=== PATIENT | male | born 1970 | race Caucasian/White ===

== ENCOUNTER 2019-10-11 10:10 | Emergency (ER) | payer OTHER, SELFPAY ==
[2019-10-11 10:23] VITALS: BP 149/92; PULSE 110; RESP 18; TEMP 36.9; O2SAT 98
--- NOTE | 2019-10-11 11:39 | ED.URI ---
HPI - URI/Sore Throat General Chief Complaint: Upper Respiratory Infection Stated Complaint: congestion/cough/throat Source: patient and RN notes reviewed Mode of arrival: ambulatory Limitations: no limitations History of Present Illness HPI Narrative: The patient, non-smoker/ occ drinker [place] [employer], presents with cough. Patient states he has had quick onset 2-day history of chills, has scratchy sore throat, nasal congestion and cough. No fever measured, wheeze, precordial chest pain, calf pain/edema. Spouse reportedly had strep. Related Data Home Medications Medication Instructions Recorded Confirmed lisinopril 20 mg DAILY 10/11/19 10/11/19 Allergies Allergy/AdvReac Type Severity Reaction Status Date / Time No Known Allergies Allergy Verified 06/21/16 21:27 Review of Systems Review of Systems: Narrative: General/Constitutional: No weight loss, POSSIBLE fever Eyes: N0: Redness,discharge Ears/Nose/Throat: No: Epistaxis,ear discharge Respiratory: Denies: Hemoptysis Gastrointestinal: No Vomiting, Bleeding-rectal Skin: No Lumps, eruption Neurologic: No Focal Weakness,Sz Hematologic: Denies: Petechiae/Purpura Psychiatric: No: Suicida ideationl All Other Systems: Reviewed and Negative PMFSH Social History Social History Gender identity (if verbalized by the patient): Male Comments At time of signature, agree with nursing past medical, surgical, social and family history. There is no relevant family history pertinent to the presenting complaint Exam Narrative: Exam Narrative: General Appearance: Well appearing, Well nourished EYE: PERRLA, Conjunctiva clear Ears: Auditory canal normal, TM normal Nose: Rhinorrhea, Mucousal erythema Mouth/Throat: MM moist, Uvula midline, Pharyngeal erythema Neck: Supple, No adenopathy Respiratory: No respiratory distress, Breath sounds equal, Clear to auscultation Cardiovascular: RRR, No JVD Musculoskeletal: Non tender, Normal strength Skin: Warm, Dry Neurological: A&O x3, CN II-XII intact Psychiatric: Normal mood, Normal affect Course Vital Signs Vital signs: Vital Signs Temperature 98.4 F 10/11/19 10:23 Pulse Rate 110 H 10/11/19 10:23 Respiratory Rate 18 10/11/19 10:23 Blood Pressure 149/92 H 10/11/19 10:23 Pulse Oximetry 98 10/11/19 10:23 Temperature 98.4 F 10/11/19 10:23 Pulse Rate 110 H 10/11/19 10:23 Respiratory Rate 18 10/11/19 10:23 Blood Pressure 149/92 H 10/11/19 10:23 Pulse Oximetry 98 10/11/19 10:23 MDM - URI/Sore Throat Lab Data Labs: Influenza A Screen Positive Reference Range: Negative Influenza B Screen Negative Reference Range: Negative Strep Screen Positive Group A Strep *(Reference Range: Negative)* Discharge Plan Discharge Clinical Impression: Influenza A, Strep throat Patient Disposition: Home, Self-Care Condition: Stable Instructions: Antibiotic Form, Influenza (ED) Prescriptions: New azithromycin 250 mg tablet See Rx Instructions .ROUTE .COMPLEX Qty: 6 RF: 0 codeine-guaifenesin 10-100 mg/5 mL liquid 7.5 ml PO Q6H PRN (Reason: cough) Qty: 118 RF: 0 benzonatate [Tessalon Perles] 100 mg capsule 100 mg PO TID Qty: 20 RF: 1 oseltamivir 75 mg capsule 75 mg PO Q12H 5 Days Qty: 10 RF: 0 No Action lisinopril 20 mg tablet 20 mg DAILY RF: 0 Interventions: Discharge Disposition Last Done: 10/11/19 10:53 Follow-up/Referrals: UNKNOWN,DOCTOR [Primary Care Provider] - Stand Alone Forms: Work/School Release IP Discharge Date/Time: 10/11/19 10:55
== END 2019-10-11 10:55 | disposition home or self-care (01) ==
PROVIDERS: Emergency Provider Emergency Medicine
DX: J10.1 Influenza due to other identified influenza virus with other respiratory manifestations (principal); I10 Essential (primary) hypertension
CPT/HCPCS: 87804; 87880; 99203; G0463

== ENCOUNTER 2025-08-07 18:02 | Emergency (ER) | payer OTHER, SELFPAY ==
--- NOTE | ~2025-08-07 | XR_ITS ---
EXAMINATION: XR chest 2V DATE: 08/07/2025 18:19 INDICATION: Chest pain TECHNIQUE: Frontal and lateral views of the chest were obtained. COMPARISON: Chest x-ray dated 07/13/2016 FINDINGS: Heart size is normal. Lungs are clear of acute processes. IMPRESSION: 1. No acute findings. Reviewed, dictated and finalized at location T. [facility] IMPRESSION: 1. No acute findings.
--- NOTE | 2025-08-07 18:08 | ECG_ITS ---
Test Date: 2025-08-07 18:14:48 Measurements Intervals Mylo Rate: 84 P: 98 HI: 147 QRS: 20 QRSD: 110 T: 40 QT: 400 QTc: 474 Interpretive Statements SINUS RHYTHM BASELINE ARTIFACT- I, II, III, AVR, AVL, AVF, V1-V6 NORMAL ECG No previous ECG available for comparison Electronically Signed On 08-07-2025 19:58:51 MACHINE OPERATOR HELPER by Carter Krueger D.O.
[2025-08-07 18:17] VITALS: BP 154/73; PULSE 87; RESP 18; TEMP 36.4; O2SAT 100
--- OUTSIDE RECORDS SUMMARY | 2025-08-07 20:14 | XMS_ITS | Clinical Summary ---
Author Organization [employer] [facility] Address [address] [facility] [place] [address] Care Team Providers Care Competitive Intelligence Manager Name Role Phone Unavailable Primary Care Provider Unavailabl e Social History Tobacco Use Types Packs/Day Years Used Date Smoking Tobacco: Never Assessed Sex and Gender Information Value Date Recorded Sex Assigned at Not on file Legal Sex Male 5:15 PM EST Gender Identity Not on file Sexual Orientation Not on file Plan of Treatment Not on file Medical Devices Not on file Insurance [employer]
--- OUTSIDE RECORDS SUMMARY | 2025-08-07 21:33 | XMS_ITS | Encounter Summary ---
Author Organization [facility] Address [address] [place] [address] Care Team Providers Care Paper Baler Name Role Phone Rocio Chacon MD Primary Care Provider Unavailab le Ai Jerry Primary Care Provider [phone] Frank Moeller MD Unavailable [phone] Prashant Chu MD Unavailable [phone] Ai Jerry Primary Care Provider [phone] Campbell Krishna MD Primary Care Provider U Lillian Hahn APRN Primary Care Provider + [phone] Encounter Details Date Type Department Care Team (Late st Contact Info) Description 12/28/2019 Hospital Follow-up Call [facility] Tele[facility] Unit B [facility] [place], [place] [id number] Meghann Zhao Social History Tobacco Use Types Packs/Day Years Used Date Smoking Tobacco: Former Cigarettes 1 3 0 12/22/1996 - 12/23/1999 Smokeless Tobacco: Current Chew Alcohol Use Standard Drinks/Week Comments Yes 0 (1 standard drink = 0.6 oz pur e alcohol) rare Social Connection and Isolation Panel Answer Date Recorded Frequency of Communication w ith Friends and Family More than three times a week 12/23/2019 Frequency of Social Gatherin gs with Friends and Family More than three times a week 12/23/2019 Attends Anabaptism Services More than 4 times per year 12/23/2019 Active Member of Clubs or Organizations No 12/23/2019 Attends Club or Organization Meetings Never 12/23/2019 Marital Status 12/23/2019 Overall Financial Resource Strain (CARDIA) Answe r Date Recorded Difficulty of Paying Living Expenses Not hard at all 12/23/2019 [facility] [place] [facility] Occup[facility] ional [facility] - Occupational Stress Questionnaire Answer Date Recorded Feeling of Stress To some extent 12/23/2019 Exercise Vital Sign Answer Date Recorde d Days of Exercise per Week 5 days 2019 Minutes of Exercise per Session 40 min 12/23/2019 Hunger Vital Sign Answer Date Recorded Worried About Running Out of Food in the Last Ye ar Never true 12/23/2019 Ran Out of Food in the Last Year Never true 12/23/2019 PRAPARE - Transportation Answer Date Re corded Lack of Transportation (Medical) No 12/23/2019 Lack of Transportation (Non-Medical) No 12/23/2019 Sex and Gender Information Value Date Recorded Sex Assigned at Male 12/23/2019 3:59 PM CDT Legal Sex Male 1:01 PM CDT Gender Identity Male 12/23/2019 3:59 PM CDT Sexual Orientation Straight 12/23/2019 3: 59 PM CDT COVID-19 Exposure Response Date Recorded In the last month, have you been in contact with someone who was confirmed or suspected to have Coronavirus / COVID-19? No / Unsure 12/23/2019 8:39 PM CDT documented as of this encounter Functional Status * RETIRED Are you deaf or do you have serious difficulty hearing Answer Date of Assessment Author Status No 12/23/2019 11:00 PM CDT Acti ve * RETIRED Are you blind or do you have serious difficulty seeing, even when wearing glasses? Answer Date of Assessment Author Status No 12/23/2019 11:00 PM CDT Acti ve * Do you have serious difficulty walking or climbing stairs? Answer Date of Assessment Author Status No 12/23/2019 11:00 PM CDT Shanelle Puente R N Active * Do you have difficulty dressing or bathing? Answer Date of Assessment Author Status No 12/23/2019 11:00 PM CDT Shanelle Puente R N Active * Because of a physical, mental, or emotional condition, do you have difficulty doing errands alone such as visiting a doctor's office or shopping? Answer Date of Assessment Author Status No 12/23/2019 11:00 PM CDT Shanelle Puente R N Active documented as of this encounter Mental Status * Because of a physical, mental, or emotional condition, do you have serious difficulty concentrating, remembering, or making decisions? Answer Entry Date Author Status No 12/23/2019 11:00 PM CDT Shanelle Puente R N Active documented in this encounter Plan of Treatment Upcoming Encounters Date Type Department Care Team (Late st Contact Info) Description 09/26/2025 9:30 AM HOP STRAINER Office Visit [facility], [address] [place], [place] [address] Frank Moeller MD [facility]. [address] [place], [place] [id number] documented as of this encounter Visit Diagnoses Not on filedocumented in this encounter Additional Health Concerns Infection Onset Date Last Indicated Resolved Time COVID-19 Rule Out 02/01/2020 02/01/2020 02/01/2020 10:08 PM CDT documented as of this encounter Care Teams Paper Baler Relationship Specialty Start Date End Date Rocio Chacon MD PCP - General INTERNAL MEDICINE 01/30/16 01/31/20 Ai Jerry APNP [address] [address] PCP - General Nurse Practitioner Family 02/01/2005/03 Ai Jerry APNP [address] [address] PCP - General Nurse Practitioner Family 05/31/2010/02 aCmpbell Krishna MD [facility]. [address] [place] [address] PCP - General INTERNAL MEDICINE 10/29/21 12/04/22 Lillian Dexter APRN [address] [facility] [address] [place] [address] PCP - General NURSE PRACTITIONER 12/05/22 08/06/25 Frank Moeller MD [facility]. [facility] [address] [place] [address] Consulting Physician CARDIOVASCULAR DISEASE 06/13/20 Prashant Chu MD [facility]. [facility] [address] [place] [address] Consulting Physician CLINICAL CARDIAC ELECTROPHYSIOLOGY 06/13/20 documented as of this encounter
--- OUTSIDE RECORDS SUMMARY | 2025-08-07 21:33 | XMS_ITS | Encounter Summary ---
Author Organization [facility] Address [address] [place] [address] Care Team Providers Care Parachute Crown Sewer Name Role Phone Rocio Chacon MD Primary Care Provider Unavailab le Ai Jerry Primary Care Provider [phone] Frank Moeller MD Unavailable [phone] Prashant Chu MD Unavailable [phone] Ai Jerry Primary Care Provider [phone] Campbell Krishna MD Primary Care Provider U Lillian Hahn APRN Primary Care Provider + [phone] Encounter Details Date Type Department Care Team (Late st Contact Info) Description 02/05/2019 Abstract [facility] [address] [place] [address] , Generic Conversion, Social History Tobacco Use Types Packs/Day Years Used Date Smoking Tobacco: Never Smokeless Tobacco: Current Alcohol Use Standard Drinks/Week Comments Yes 0 (1 standard drink = 0.6 oz pur e alcohol) rare Sex and Gender Information Value Date Recorded Sex Assigned at Male 12/23/2019 3:59 PM CDT Legal Sex Male 1:01 PM CDT Gender Identity Male 12/23/2019 3:59 PM CDT Sexual Orientation Straight 12/23/2019 3: 59 PM CDT documented as of this encounter Plan of Treatment Upcoming Encounters Date Type Department Care Team (Late st Contact Info) Description 09/26/2025 9:30 AM PLASTIC EXTRUDING MACHINE OPERATOR Office Visit [facility] [address], [address] [place] [address] Frank Moeller MD [facility]. [address] [place] [address] documented as of this encounter Visit Diagnoses Not on filedocumented in this encounter Additional Health Concerns Infection Onset Date Last Indicated Resolved Time COVID-19 Rule Out 02/01/2020 02/01/2020 02/01/2020 10:08 PM CDT documented as of this encounter Care Teams Parachute Crown Sewer Relationship Specialty Start Date End Date Rocio Chacon MD PCP - General INTERNAL MEDICINE 01/30/16 01/31/20 Ai Jerry APNP [address] [facility] [address] [place] [address] PCP - General Nurse Practitioner Family 02/01/2005/03 Ai Jerry APNP [address] [facility] [address] [place] [id number] PCP - General Nurse Practitioner Family 05/31/2010/02 Campbell Krishna MD [facility]. [facility] [address] [place] [address] PCP - General INTERNAL MEDICINE 10/29/21 12/04/22 Lillian Dexter APRN [address] [facility] [address] [place] [address] PCP - General NURSE PRACTITIONER 12/05/22 08/06/25 Frank Moeller MD [facility]. [place] [address] [place] [address] Consulting Physician CARDIOVASCULAR DISEASE 06/13/20 Prashant Chu MD [facility]. [address] [address] Consulting Physician CLINICAL CARDIAC ELECTROPHYSIOLOGY 06/13/20 documented as of this encounter
--- OUTSIDE RECORDS SUMMARY | 2025-08-07 21:33 | XMS_ITS | Encounter Summary ---
Author Organization [facility] Address [address] [place] [address] Care Team Providers Care Aging Room Hand Name Role Phone Rocio Chacon MD Primary Care Provider Unavailab le Ai Jerry Primary Care Provider [phone] Frank Moeller MD Unavailable [phone] Prashant Chu MD Unavailable [phone] Ai Jerry Primary Care Provider [phone] Campbell Krishna MD Primary Care Provider U Lillian Hahn APRN Primary Care Provider + [phone] Encounter Details Date Type Department Care Team (Latest Contact Info) Description 02/26/2018 Abstract [facility] , Duyen Up MD Social History Tobacco Use Types Packs/Day Years [...] st Contact Info) Description 09/26/2025 9:30 AM BLACK TOP ROLLER Office Visit [facility], [address] [address] Frank Moeller MD [facility]. [facility] [address] [place] [address] documented as of this encounter Visit Diagnoses Not on filedocumented in this encounter Additional Health Concerns Infection Onset Date Last Indicated Resolved Time COVID-19 Rule Out 02/01/2020 02/01/2020 02/01/2020 10:08 PM CDT documented as of this encounter Care Teams Aging Room Hand Relationship Specialty Start Date End Date Rocio Chacon MD PCP - General INTERNAL MEDICINE 01/30/16 01/31/20 Ai Jerry APNP [address] [address] PCP - General Nurse Practitioner Family 02/01/2005/03 Ai Jeryr APNP [address] [address] PCP - General Nurse Practitioner Family 05/31/2010/02 Campbell Krishna MD [facility] [address] [place] [address] PCP - General INTERNAL MEDICINE 10/29/21 12/04/22 Lillian Dexter APRN [address] [facility] [address] [place] [address] PCP - General NURSE PRACTITIONER 12/05/22 08/06/25 Frank Moeller MD [facility]. [facility] [address] [place] [address] Consulting Physician CARDIOVASCULAR DISEASE 06/13/20 Prashant Chu MD [facility] [place] [address] [place] [address] Consulting Physician CLINICAL CARDIAC ELECTROPHYSIOLOGY 06/13/20 documented as of this encounter
--- OUTSIDE RECORDS SUMMARY | 2025-08-07 21:33 | XMS_ITS | Clinical Summary ---
Author Organization [facility] [facility] Address [address] [facility] [place] [address] Care Team Providers Care Electrician Manager Name Role Phone Unavailable Primary Care [...] file Medical Devices Not on file Insurance [employer]
--- OUTSIDE RECORDS SUMMARY | 2025-08-07 21:33 | XMS_ITS | Clinical Summary ---
Author Organization [facility] Address [address] [place] [address] Care Team Providers Care Rubber Insulator Name Role Phone Millie Coffey MD Primary Care Provider Allergies No known active allergies Medications hydroCHLOROthiazid e (HYDRODIURIL) 25 mg tabletIndications: Hypertension, unspecified type Take 1 tablet (25 mg total) by mouth daily 90 tablet 1 01/21/20 24 Active LORazepam (ATIVAN) 1 mg tablet Take 1 tablet (1 mg total) by mouth every 6 (six) hours as needed for anxiety (flying) 4 tablet 04/28/[address] (CYMBALTA) 30 mg capsule Take 1 capsule (30 mg total) by mouth daily 60 capsule 10/27/19 26 026 Active lisinopriL (PRINIVIL,ZESTRIL) 40 mg tabletIndications: Hypertension, essential Take 1 tablet (40 mg total) by mouth daily 90 tablet 07/11/20 25 Active metoprolol XL (TOPROL-XL) 100 mg 24 hr tabletIndications: Hypertension, essential Take 1.5 tablets (150 mg total) by mouth daily 1 /2 tab 135 tablet 07/11/20 25 Active amLODIPine (NORVASC) 10 mg tabletIndications: Hypertension, essential Take 0.5 tablets (5 mg total) by mouth 2 (two) times a day 90 tablet 07/11/20 25 Active apixaban (ELIQUIS) 5 mg tabletIndications: Atrial fibrillation with RVR (HCC) Take 1 tablet (5 mg total) by mouth 2 (two) times a day 90 tablet 2 07/11/20 25 Active tirzepatide, weight loss, (Zepbound) 10 mg/0.5 mL pen injectorIndication s:Body mass index (BMI) of 36.0 to 36.9 Inject 0.5 mL (10 mg total) under the skin every 7 days 2 mL 2 07/11/[address] (CYMBALTA) 60 mg capsuleIndications :Chronic Musculoskeletal Pain Take 1 capsule (60 mg total) by mouth daily 90 capsule 08/03/20 25 026 Active prazosin (MINIPRESS) 1 mg capsule Take 1 capsule (1 mg total) by mouth nightly 90 capsule 1 08/07/20 25 Active lisinopriL (PRINIVIL,ZESTRIL) 40 mg tablet Take by mouth daily 09/10/19 23 025 Discontinued(R eorder) metoprolol XL (TOPROL-XL) 100 mg 24 hr tablet 1 09/01 tab 08/25/20 22 025 Discontinued(R eorder) amLODIPine (NORVASC) 10 mg tablet Take 0.5 tablets (5 mg total) by mouth 2 (two) times a day 07/30/20 22 025 Discontinued(R eorder) apixaban (ELIQUIS) 5 mg tablet Take 1 tablet (5 mg total) by mouth 2 (two) times a day 08/29/20 23 025 Discontinued(R eorder) prazosin (MINIPRESS) 1 mg capsule TAKE 1 CAPSULE(1 MG) BY MOUTH EVERY NIGHT 90 capsule 1 02/03/20 25 025 Discontinued(R eorder) DULoxetine DR (CYMBALTA) 60 mg capsuleIndications :Chronic Musculoskeletal Pain Take 1 capsule (60 mg total) by mouth daily 90 capsule 1 05/10/20 25 025 Discontinued tirzepatide, weight loss, (Zepbound) 10 mg/0.5 mL pen injectorIndication s:Body mass index (BMI) of 36.0 to 36.9 Inject 0.5 mL (10 mg total) under the skin every 7 days 2 mL 05/26/20 25 025 Discontinued(R eorder) Active Problems Problem Noted Date Diagnosed Date PUD (peptic ulcer disease) 10/05/2023 Motion sickness 03/09/2023 Overview (03/09/2023): -has struggled with motion sickness in the past -previously treated with meclizine in the past but states this no longer works -he is also very claustrophobic and is worried about an upcoming road trip -leaving 03/11 on a [address] trip to [place] and he is very worried he is not going to make it there due to motion sickness and a panic attack while being in the car -he will not be driving, his is driving the entire time -is wondering about as needed medication for anxiety if the scopolamine does not work Scopolamine sent to pharmacy. Reviewed application instructions, duration and side effects. Anxiety 11/18/2021 Essential hypertension 01/24/2021 Overview (01/05/2023): -BP at goal today in clinic -requesting refill for HCTZ Refill sent to pharmacy. Chest pain 12/29/2020 Bradycardia 11/21/2020 Atrial fibrillation with RVR 12/23/2019 Insomnia 05/17/2018 SALVATORE on CPAP 12/18/2016 Esophageal dysphagia 07/22/2016 Overview (10/13/2024): Added automatically from request for surgery [id number] Panic attack 07/22/2016 Internal derangement of shoulder, left 6 Elevated AST (SGOT) 01/26/2014 Hyperlipidemia 01/26/2014 Obesity 01/09/2014 Overview (03/09/2023): -needing refill of wegovy 1.7mg weekly -on this dose for 4 weeks -had diarrhea with the first 2 doses -he does not want to increase dose just yet Refilled wegovy 1.7mg for 4 weeks. Follow up with PCP as previously scheduled. Encounters Date Type Department Care Team Description 05/10/2025 8:30 AM CDT Office Visit [facility] Medicine Gastroenterology [address] [facility] Building [address] [place] [phone] Kelin Bernal MD Chest pain, unspecified type (Primary Dx); PUD (peptic ulcer disease) from Last 3 Months Immunizations Immunization Administration Dates Next Due Influenza, Quadrivalent, Maggy l Culture-based MDCK, Antibiotic Free, Intramuscular 06/16/2019 Influenza, Unspecified 06/20/2019 Moderna SARS-CoV-2 Monovalent Vaccination (12+ Y RS) 09/19/2020 Tdap 12/05/2022 Surgical History Surgery Date Site/Laterality Comments ABLATION TONSILLECTOMY AND ADENOIDECTOMY APPENDECTOMY COLONOSCOPY 2021 UPPER GASTROINTESTINAL ENDOSCOPY 2021 Medical History Medical History Date Comments Atrial fibrillation (HCC) Abdominal pain High blood pressure GERD (gastroesophageal reflux disease) 2020 Fatigue 2020 Food intolerance 2020 Fatty liver 2014 Anxiety Back pain Sinusitis 1971 Ear problems 1971 Family History Medical History Relation Name Comments Alcohol abuse Father's Brother Jeferson Whitney Heart disease Maternal Grandfather Syed Loza Geraldo Heart failure Maternal Grandfather Syed Loza Geraldo Snoring Maternal Grandfather Syed Loza Geraldo Cancer Mother Samia Whitney Colon cancer Mother Samia Whitney Kidney disease Mother Samia Whitney Kidney failure Mother Samia Whitney Ovarian cancer Mother Samia Whitney Rheum arthritis Mother Samia Whitney Relation Name Status Comments Father's Brother Jeferson Whitney Alive Maternal Grandfather Syed Chow Mother Samia Whitney Social History Tobacco Use Types Packs/Day Years Used Date Smoking Tobacco: Former Cigarettes Q uit: 1994 Smokeless Tobacco: Former Chew Quit: 2021 Tobacco Cessation:Counseling Given: Not Answered AUDIT-C Answer Date Recorded Q1: How often do you have a drink containing alc ohol? Never 12/09/2023 Average Number of Drinks Not on file 024 Frequency of Binge Drinking Not on file 11/29 PHQ-2 Answer Date Recorded PHQ-2 Total Score (If total score is 3 or more points, staff should administer the PHQ-9) 0 04/28/2025 Personal Safety Answer Date Recorded Have you ever been in or are you currently in a harmful physical or emotional relationship or is someone making you feel afraid or unsafe? Denies 12/09/2023 Sex and Gender Information Value Date Recorded Sex Assigned at Not on file Legal Sex Male 1:44 AM SPECIFICATIONS WRITER Gender Identity Not on file Sexual Orientation Not on file Last Filed Vital Signs Vital Sign Reading Time Taken Comments Blood Pressure 122/76 05/10/2025 8:10 AM CDT Pulse 65 05/10/2025 8:10 AM CDT Temperature 36.4 C (97.6 F) 05/10/2025 8:10 AM CDT Respiratory Rate 16 01/27/2025 8:23 AM CDT Oxygen Saturation 97% 05/10/2025 8:10 AM CDT Inhaled Oxygen Concentration - - Weight 118.6 kg (261 lb 6.4 oz) 05/10/2025 8:10 AM CDT Height 185.4 cm (6' 0.99) 05/10/2025 8:10 AM CD T Body Mass Index 34.5 05/10/2025 8:10 AM CDT Plan of Treatment Health Maintenance Due Date Last Done Comments Regular Well Visit/Exam 18-64 1988 Zoster Vaccine (1 of 2) 2020 Covid-19 Vaccine ( - 2024-2 6 season) 2025 10/23/2020, 09/19/2020 Influenza Vaccine (#1) 2025 9, 06/16/2019 Depression Screening 04/28/2026 04/28/2025, 01/15/2024, 10/09/2022 Prostate Cancer Screening-PSA 04/28/2027, 02/23/2023 Colon Cancer Screening-Colonoscopy 06/17/2027 06/17/2022 DTaP/Tdap/Td Vaccine (2 - Td or Tdap) 12/05/2032 12/05/2022 Hepatitis B Screening Completed 01/15/2024 Hepatitis C Screening Completed 01/15/2024 Pneumococcal vaccine <65 Aged Out No longer eligible based on patient's age to complete this topic Procedures Procedure Name Priority Date/Time Associated Diagnosis Comments PSA SCREEN Routine 04/28/2025 8:29 AM CDT Screening for prostate cancer HEPATITIS C ANTIBODY Routine 01/15/2024 8:26 AM CDT Health care maintenance from Last 3 Months or Most Recently Relevant to Health Maintenance Results * PSA screen (04/28/2025 8:29 AM CDT) PSA-Total 0.51 <=3.90 ng/mL Comment: Interpretive Data AGE SEX REFERENCE INTERVAL 0 minutes-150 years Female None 0 minutes-49 years Male None 50-59 years Male 0-3.90 60-69 years Male 0-5.40 70-79 years Male 0-6.20 80-150 years Male 0-6.20 The Enrique PSA Total assay procedure was used. Results from different manufacturers or methods may not be comparable. Serial testing should be performed using the same method. Current interpretive data last revised 22. Blood 04/28/2025 8:29 AM CDT 04/28/2025 8:43 AM CDT Millie Coffey MD LAB BLOOD ORDERABLES F inal Result Performing Organization Address [facility] Co de [facility] [place] [address] * Hepatitis C antibody Blood (01/15/2024 8:26 AM CDT) Pathologist [facility] Hep C Ab Nonreactive Nonreactive Comment:Antibodies to HCV no t detected. Does NOT exclude the possibility of recent exposure to HCV. Current interpretive data was last revised on 22 Blood 01/15/2024 8:26 AM CDT 01/15/2024 8:34 AM CDT Millie Coffey MD LAB MICROBIOLOGY - GEN ERAL ORDERABLES Final Result Performing Organization Address [facility] Co de Phone Number [facility] [place] [address] from Last 3 Months or Most Recently Relevant to Health Maintenance Insurance [facility] [id number] [facility] [facility] [id number] Advance Directives For more information, please contact: [phone] * Full Code (Latest Code Status on File) Date Activated Date Inactivated Comments 12/09/2023 8:41 AM 12/09/2023 2:59 PM * Full Code Date Activated Date Inactivated Comments 09/01/2023 12:18 PM 09/01/2023 8:33 PM Care Teams Rubber Insulator Relationship Specialty Start Date End Date Millie Coffey MD [address] [place] [address] PCP - General Internal Medicine 10/09/22
--- OUTSIDE RECORDS SUMMARY | 2025-08-07 21:33 | XMS_ITS | Encounter Summary ---
Author Organization [facility] Address [address] [place] [address] Care Team Providers Care Adolescent Counselor Name Role Phone Rocio Chacon MD Primary Care Provider Unavailab le Ai Jerry Primary Care Provider [phone] Frank Moeller MD Unavailable [phone] Prashant Chu MD Unavailable [phone] Ai Jerry Primary Care Provider [phone] Campbell Krishna MD Primary Care Provider U Lillian Hahn APRN Primary Care Provider + [phone] Encounter Details Date Type Department Care Team (Latest Contact Info) Description 02/19/2018 Abstract [facility] , Duyen Up MD [...] st Contact Info) Description 09/26/2025 9:30 AM MRI SPECIAL PROCEDURES TECHNOLOGIST Office Visit [facility], [address] [address] Frank Moeller MD [facility]. [facility] [address] [place] [address] documented as of this encounter Visit Diagnoses Not on filedocumented in this encounter Additional Health Concerns Infection Onset Date Last Indicated Resolved Time COVID-19 Rule Out 02/01/2020 02/01/2020 02/01/2020 10:08 PM CDT documented as of this encounter Care Teams Adolescent Counselor Relationship Specialty Start Date End Date Rocio Chacon MD PCP - General INTERNAL MEDICINE 01/30/16 01/31/20 Ai Jerry APNP [id number] [address] PCP - General Nurse Practitioner Family 02/01/2005/03 Ai Jerry APNP [address] [address] PCP - General Nurse Practitioner Family 05/31/2010/02 Campbell Krishna MD [facility] [address] [place] [address] PCP - General INTERNAL MEDICINE 10/29/21 12/04/22 Lillian Dexter APRN [address] [facility] [address] [place] [address] PCP - General NURSE PRACTITIONER 12/05/22 08/06/25 Frank Moeller MD [facility]. [facility] [address] [place] [address] Consulting Physician CARDIOVASCULAR DISEASE 06/13/20 Prashant Chu MD [id number] [place] [address] Consulting Physician CLINICAL CARDIAC ELECTROPHYSIOLOGY 06/13/20 documented as of this encounter
--- OUTSIDE RECORDS SUMMARY | 2025-08-07 21:33 | XMS_ITS | Encounter Summary ---
Author Organization [facility] Address [address] [place] [address] Phone Care Team Providers Care Trust Advisor Name Role Phone Millie Coffey MD Primary Care Provider Encounter Details Date Type Department Care Team (Late st Contact Info) Description 10/10/2022 Telephone [facility] [address] [facility] 12th [place] [address] [place] [id number] Millie Coffey MD [address] [facility] [address] [place] [address] Social History Tobacco Use Types Packs/Day Years Used Date Smoking Tobacco: Former Cigarettes Q uit: 1994 Smokeless Tobacco: Former Chew Quit: 2021 AUDIT-C Answer Date Recorded Q1: How often do you have a drink containing alcohol? Never 10/09/2022 Q2: How many drinks containi ng alcohol do you have on a typical day when you are drinking? Patient does not drink Q3: How often do you have si x or more drinks on one occasion? Never 10/09/2022 PHQ-2 Answer Date Recorded PHQ-2 Total Score (If total score is 3 or more points, staff should administer the PHQ-9) 0 10/09/2022 Sex and Gender Information Value Date Recorded Sex Assigned at Not on file Legal Sex Male 1:44 AM PRODUCT MANAGEMENT INTERN Gender Identity Not on file Sexual Orientation Not on file documented as of this encounter Plan of Treatment Not on file documented as of this encounter Visit Diagnoses Not on filedocumented in this encounter Care Teams Trust Advisor Relationship Specialty Start Date End Date Millie Coffey MD [address] [place] [address] PCP - General Internal Medicine 10/09/22 documented as of this encounter
--- OUTSIDE RECORDS SUMMARY | 2025-08-07 21:33 | XMS_ITS | Encounter Summary ---
Author Organization [facility] Address [address] [place] [address] Care Team Providers Care Paediatrician Name Role Phone Rocio Chacon MD Primary Care Provider Unavailab le Ai Jerry Primary Care Provider [phone] Frank Moeller MD Unavailable [phone] Prashant Chu MD Unavailable [phone] Ai Jerry Primary Care Provider [phone] Campbell Krishna MD Primary Care Provider U Lillian Hahn APRN Primary Care Provider + [phone] Encounter Details Date Type Department Care Team (Late st Contact Info) Description 12/26/2019 Hospital Follow-up Call [facility] Telemetry Unit B [facility] [place], [place] [id number] Meghann Zhao Social History Tobacco Use Types [...] than three times a week 12/23/2019 Attends Shinto Services More than 4 times per year 12/23/2019 Active Member of Clubs or Organizations No 12/23/2019 Attends Club or Organization Meetings Never 12/23/2019 Marital Status 12/23/2019 Overall Financial Resource Strain (CARDIA) Answe r Date Recorded Difficulty of Paying Living Expenses Not hard at all 12/23/2019 [facility] [place] of Occupat ional Health - Occupational Stress [...] st Contact Info) Description 09/26/2025 9:30 AM LABOR AND DELIVERY REGISTERED NURSE Office [facility] [address] [place], [place] [address] Frank Moeller MD Three [facility]. [address] [place], [place] [id number] documented as of this encounter Visit Diagnoses Not on filedocumented in this encounter Additional Health Concerns Infection Onset Date Last Indicated Resolved Time COVID-19 Rule Out 02/01/2020 02/01/2020 02/01/2020 10:08 PM CDT documented as of this encounter Care Teams Paediatrician Relationship Specialty Start Date End Date Rocio Chacon MD PCP - General INTERNAL MEDICINE 01/30/16 01/31/20 Ai Jerry APNP [address] [address] PCP - General Nurse Practitioner Family 02/01/2005/03 Ai Jerry APNP [address] [address] PCP - General Nurse Practitioner Family 05/31/2010/02 Campbell Krishna MD Three [facility]. [facility] [address] [place] [address] PCP - General INTERNAL MEDICINE 10/29/21 12/04/22 Lillian Dexter APRN [address] [facility] [address] [place] [address] PCP - General NURSE PRACTITIONER 12/05/22 08/06/25 Frank Moeller MD [facility]. [facility] [address] [place] [address] Consulting Physician CARDIOVASCULAR DISEASE 06/13/20 Prashant Chu MD [facility]. [facility] [address] [place] [address] Consulting Physician CLINICAL CARDIAC ELECTROPHYSIOLOGY 06/13/20 documented as of this encounter
--- OUTSIDE RECORDS SUMMARY | 2025-08-07 21:33 | XMS_ITS | Encounter Summary ---
Author Organization [facility] Address [address] [place] [address] Care Team Providers Care Percussion Tuner Name Role Phone Frank Moeller MD Unavailable [phone] Prashant Chu MD Unavailable [phone] Lillian Dexter APRN Primary Care Provider [phone] Encounter Details Date Type Department Care Team (Late st Contact Info) Description 02/17/2023 Bix Message Enc [facility] [address] [place], [facility] Provider Heart Monitor reviewed Social History Tobacco Use Types Packs/Day Years Used Date Smoking Tobacco: Former Cigarettes 1 3 0 11/1989 - 11/1992 Smokeless Tobacco: Former Chew Quit: 10/02/2021 Comments:Pt is a non-smoker Alcohol Use Standard Drinks/Week Comments Not Currently 0 (1 standard drink = 0.6 oz pur e alcohol) Social Connection and Isolation Panel Answer Date Recorded Frequency of Communication w ith Friends and Family More than three times a week 12/23/2019 Frequency of Social Gatherin gs with Friends and Family More than three times a week 12/23/2019 Attends Orthodoxy Services More than 4 times per year 12/23/2019 Active Member of Clubs or Organizations No 12/23/2019 Attends Club or Organization Meetings Never 12/23/2019 Marital Status 12/23/2019 Overall Financial Resource Strain (CARDIA) Answe r Date Recorded Difficulty of Paying Living Expenses Not hard at all 12/23/2019 PHQ-2 Answer Date Recorded PHQ-2 Score - If the patient scores above 3, please move on to questions 3-9 4 11/18/2021 [facility] [place] of Occupat ional Health - Occupational Stress [...] Exposure Response Date Recorded In the last 10 days, have yo u been in contact with someone who was confirmed or suspected to have Coronavirus/COVID-19? No / Unsure 02/09/2023 10:10 AM CDT documented as of this encounter Functional Status * RETIRED Are you deaf or do you have serious difficulty hearing Answer Date of Assessment Author Status No 02/03/2020 3:00 PM CDT Activ e * RETIRED Are you blind or do you have serious difficulty seeing, even when wearing glasses? Answer Date of Assessment Author Status No 02/03/2020 3:00 PM CDT Activ e * Do you have serious difficulty walking or climbing stairs? Answer Date of Assessment Author Status No 02/03/2020 3:00 PM CDT Milly Fisher RN Active * Do you have difficulty dressing or bathing? Answer Date of Assessment Author Status No 02/03/2020 3:00 PM THOMAST Milly Fisher RN Active * Because of a physical, mental, or emotional condition, do you have difficulty doing errands alone such as visiting a doctor's office or shopping? Answer Date of Assessment Author Status No 02/03/2020 3:00 PM CDT Milly Fisher RN Active documented as of this encounter Mental Status * Because of a physical, mental, or emotional condition, do you have serious difficulty concentrating, remembering, or making decisions? Answer Entry Date Author Status No 02/03/2020 3:00 PM CDT Milly Fisher RN Active documented in this encounter Plan of Treatment Upcoming Encounters Date Type Department Care Team (Late st Contact Info) Description 09/26/2025 9:30 AM OPERATER Office Visit [facility] [place] [address] [place] [address] Frank Moeller MD Three [facility]. [place] [address] [place], [place] [address] documented as of this encounter Visit Diagnoses Not on filedocumented in this encounter Additional Health Concerns Assessment Noted Time PHQ-9 Depression Total Score: 11 11/18/ 022 3:57 PM CDT documented as of this encounter Care Teams Percussion Tuner Relationship Specialty Start Date End Date Lillian Dexter APRN [address] [address] PCP - General NURSE PRACTITIONER 12/05/22 08/06/25 Frank Moeller MD [facility]. [place] [address] [place] [address] Consulting Physician CARDIOVASCULAR DISEASE 06/13/20 Prashant Chu MD [facility]. [address] [place], [place] [address] Consulting Physician CLINICAL CARDIAC ELECTROPHYSIOLOGY 06/13/20 documented as of this encounter
[2025-08-07 21:42] LABS: Hematocrit 45.0 % (42.0-52.0); Hemoglobin 15.4 g/dL (14.0-18.0); Immature Granulocyte Percent A 0.1 % (0-0.5); Lymphocytes Absolute Auto 1.39 K/mm3 (0.9-3.2); Mean Corpuscular HGB Conc 34.2 g/dl (32-36); Mean Corpuscular Hemoglobin 31.6 pg (26-34); Mean Corpuscular Volume 92.4 fl (80-100); Nucleated Red Blood Cells Absolute Auto 0.000 K/mm3 (0.0-0.012); Nucleated Red Blood Cells Perc 0.0 % (0.0-0.2); Platelet Count Result 256 k/mm3 (150-375); Red Blood Count 4.87 M/mm3 (4.6-6.20); White Blood Count 9.8 K/mm3 (4.5-10.0)
--- NOTE | 2025-08-07 21:47 | ED.GENADULT ---
HPI - General Adult General Chief complaint: Chest Pain Stated complaint: CHEST PAIN SINCE 1600 Time Seen by Provider: 08/07/25 21:22 History of Present Illness HPI narrative: 54 old male with history of AFib with previous cardiac ablation present to the emergency department for evaluation for chest pain. Patient states today at approximately 4:00 p.m. he [place] and had onset of chest pain. Patient denies any radiation of the pain into his neck or back. Patient did have associated shortness of breath with this. Patient states he did have a recent issue getting his blood pressure medications filled he change pharmacy and states he was out of his blood pressure medications from Thursday until today. While the patient was in the waiting room he did restart his lisinopril and amlodipine and hydrochlorothiazide. Patient does not suspects that he was in AFib. Patient is on Eliquis and this medication did not labs. Patient has been taking this. Patient denies any current shortness of breath. Patient denies any posterior leg swelling or calf tenderness to palpation. Patient states that he does still have some residual chest tightness. Patient had a cardiac ablation in 2019, stress test proximal 3 years ago an Angiocath approximately 2 years ago. Patient has no cardiac stents. Related Data Home Medications ?Medication ?Instructions ?Recorded ?Confirmed ?Last Taken ?Type lisinopril 20 mg tablet 20 mg DAILY 10/11/19 10/11/19 Unknown History Allergies Allergy/AdvReac Type Severity Reaction Status Date / Time No Known Allergies Allergy Verified 08/07/25 18:03 Review of Systems Review of Systems: All systems reviewed & are unremarkable except as noted in HPI and below PMFSH Social History Social History Gender identity (if verbalized by the patient): Male Exam Narrative: APPEARANCE: Well appearing, no pain, no distress, well-nourished. HEAD: normocephalic, atraumatic. EYES: PERRLA/EOMI, conjunctivae clear. NOSE: Normal no drainage EARS:TMS clear with good light reflex. THROAT: Pharynx clear, no exudate. NECK: Supple. No adenopathy, no masses. RESPIRATORY: Airway patent, respirations nonlabored. Clear to auscultation bilaterally, no rales, rhonchi, wheezing. CARDIOVASCULAR: Regular rate and rhythm without murmurs rubs or gallops. ABDOMINAL: Soft, nontender, nondistended, normal bowel sounds MUSCULOSKELETAL: Moves all extremities. Strength/ROM intact, No edema, No calf tenderness. NEURO: Alert. Cranial nerves II through XII intact. Good gait. Good coordination SKIN: Warm, dry. Normal Color Course Vital Signs Vital signs: Vital Signs Temperature 97.6 F 08/07/25 18:17 Pulse Rate 87 08/07/25 18:17 Respiratory Rate 18 08/07/25 18:17 Blood Pressure 154/73 H 08/07/25 18:17 Pulse Oximetry 100 08/07/25 18:17 Oxygen Delivery Room Air 08/07/25 18:17 Temperature 97.6 F 08/07/25 18:17 Pulse Rate 88 08/08/25 01:56 Respiratory Rate 12 08/08/25 01:56 Blood Pressure 136/88 08/08/25 01:56 Pulse Oximetry 99 08/08/25 01:56 Oxygen Delivery Room Air 08/07/25 23:15 Fraction of Inspired Oxygen 21 08/07/25 23:11 [facility] Narrative Medical decision making narrative: 54-year-old male presents emergency department for evaluation for episode of chest pain. Patient states chest pain was resolved at time of initial evaluation but was still having some chest tightness. Patient is currently afebrile no leukocytosis hemoglobin of 15.4. Patient had a negative D-dimer and patient had negative serial troponins with normal EKG. Lipase was negative. Chest x-ray shows no acute cardiopulmonary abnormality. Low concern for PE, ACS, pneumonia, pneumothorax. Patient was treated with albuterol inhaler and did feel improved. Patient states he had been off his medication for multiple days and patient was at a week when the symptoms started. Patient states he has his blood pressure medications filled Differential Diagnosis Differential Diagnosis: Pneumonia, pneumothorax, pulmonary embolism, AFib, hypertension, ACS Lab Data [facility] Lab Attestation statement: I personally reviewed the patient's lab results. 08/07/25 21:35 08/07/25 21:35 Labs: Lab Results 08/07/25 08/08/25 Range/Units 21:35 00:25 WBC 9.8 (4.5-10.0) K/mm3 RBC 4.87 (4.6-6.20) M/mm3 Hgb 15.4 (14.0-18.0) g/dL Hct 45.0 (42.0-52.0) % MCV 92.4 (80-100) fl MCH 31.6 (26-34) pg MCHC 34.2 (32-36) g/dl RDW 15.3 H (11.5-14.5) % Plt Count 256 (150-375) k/mm3 MPV 9.3 (7.4-10.4) fl Immature Gran % (Auto) 0.1 (0-0.5) % Neut % (Auto) 78.9 H (45.5-73.1) % Lymph % (Auto) 14.2 L (18.3-44.2) % [place] % (Auto) 5.4 (2.6-8.5) % Eos % (Auto) 1.0 (0-4.4) % Baso % (Auto) 0.4 (0.2-1.2) % Lymph # (Auto) 1.39 (0.9-3.2) K/mm3 [place]mer # (Auto) 0.5 (0.1-0.6) K/mm3 Eos # (Auto) 0.1 (0-0.3) K/mm3 Baso # (Auto) 0.0 (0.0-0.1) K/mm3 Abs Immat Gran (auto) 0.01 (0.00-0.031) K/mm3 Absolute Neuts (auto) 7.8 H (1.3-6.7) K/mm3 Absolute Nucleated RBC 0.000 (0.0-0.012) K/mm3 Nucleated RBC % 0.0 (0.0-0.2) % PT 13.5 (11.1-14.7) Seconds INR 1.0 APTT 31.0 (22.3-36.8) Seconds D-Dimer 0.27 (<0.48) ug/mL Sodium 136 L (137-145) mmol/L Potassium 3.7 (3.4-5.0) mmol/L Chloride 104 (98-107) mmol/L Carbon Dioxide 22 (22-30) mmol/L Anion Gap 10 (4-12) mmol/L BUN 26 H (9-20) mg/dL Creatinine 0.86 (0.7-1.3) mg/dL Estim Creat Clear Calc Not Reportable Estimated GFR > 60 (59 - ) Glucose 92 (65-110) mg/dL Calcium 9.8 (8.4-10.2) mg/dL Total Bilirubin 1.0 (0.2-1.3) mg/dL AST 40 (17-59) U/L ALT 41 (6-50) U/L Alkaline Phosphatase 86 (38-126) U/L Troponin I < 0.012 < 0.012 (0.000-0.034) ng/mL Total Protein 8.5 H (6.3-8.2) g/dL Albumin 4.8 (3.5-5.1) g/dL Lipase 104 (23-300) U/L Imaging Data Attestation: I personally reviewed and interpreted this imaging study as follows: My impression: Chest x-ray: No acute cardiopulmonary abnormality Radiologist's impression: ITS Impressions Chest X-Ray 08/07/25 18:29 IMPRESSION: 1. No acute findings. Discharge Plan Discharge Clinical Impression: Chest pain Patient Disposition: Home Condition: Stable Instructions: Antibiotic Form, Chest Pain (ED) Additional Instructions: Have close follow-up with your primary care physician for additional outpatient cardiac testing. If you have any worsening symptoms then please call or return to the emergency department. Patient Language: Tongan Prescriptions: No Action lisinopril 20 mg tablet 20 mg DAILY azithromycin 250 mg tablet See Rx Instructions .ROUTE .COMPLEX Qty: 6 0RF Rx Instructions: take 500 mg today (day 1), then 250 mg for 4 days (days 2-5) codeine-guaifenesin 10-100 mg/5 mL liquid 7.5 ml PO Q6H PRN (Reason: cough) Qty: 118 0RF benzonatate [Tessalon Perles] 100 mg capsule 100 mg PO TID Qty: 20 1RF oseltamivir 75 mg capsule 75 mg PO Q12H 5 Days Qty: 10 0RF Follow-up/Referrals: PHYSICIAN NOT ON STAFF,NONSTAFF [Primary Care Provider] Quality HEART score for chest pain patients History: slightly suspicious ECG: normal Age: > 45 and < 65 years Risk factors: 1 or 2 risk factors Troponin: < or = to 1x normal limit Heart score: 2
[2025-08-07 21:55] LABS: Alanine Aminotransferase 41 U/L (6-50); Albumin Level 4.8 g/dL (3.5-5.1); Alkaline Phosphatase 86 U/L (38-126); Anion Gap 10 mmol/L (4-12); Aspartate Amino Transferase 40 U/L (17-59); Bilirubin,Total 1.0 mg/dL (0.2-1.3); Blood Urea Nitrogen 26 mg/dL (9-20); Calcium 9.8 mg/dL (8.4-10.2); Carbon Dioxide 22 mmol/L (22-30); Chloride 104 mmol/L (98-107); Estimated Glomerular Filt Rate > 60; Glucose 92 mg/dL (65-110); Lipase 104 U/L (23-300); Potassium 3.7 mmol/L (3.4-5.0); Sodium 136 mmol/L (137-145); Total Protein 8.5 g/dL (6.3-8.2)
[2025-08-07 22:06] LABS: Troponin I < 0.012 ng/mL (0.000-0.034)
[2025-08-07 22:17] LABS: INR 1.0; Partial Thromboplastin Time 31.0 Seconds (22.3-36.8); Prothrombin Time 13.5 Seconds (11.1-14.7)
[2025-08-07] MEDS: ALBUTEROL SULFATE NEB 2.5 MG/3 ML INH INHALATION (23:08)
[2025-08-07 23:11] VITALS: PULSE 81; RESP 20; O2SAT 99
[2025-08-07 23:15] VITALS: O2SAT 100
[2025-08-07 23:20] VITALS: PULSE 89; RESP 20
--- NOTE | 2025-08-08 00:15 | ECG_ITS ---
Test Date: 2025-08-08 00:19:45 Measurements Intervals [place] Rate: 78 P: 52 RI: 172 QRS: 12 QRSD: 108 T: 32 QT: 416 QTc: 476 Interpretive Statements SINUS RHYTHM BASELINE ARTIFACT- I, II, III, AVF NORMAL ECG Compared to ECG 08/07/2025 18:14:48 No significant changes Electronically Signed On 08-08-2025 06:26:04 [employer] by Carter Krueger D.O.
[2025-08-08 00:59] LABS: Troponin I < 0.012 ng/mL (0.000-0.034)
[2025-08-08 01:56] VITALS: BP 136/88; PULSE 88; RESP 12; O2SAT 99
== END 2025-08-08 01:57 | disposition home or self-care (01) ==
PROVIDERS: Emergency Medicine; Emergency Provider Emergency Medicine
DX: R07.9 Chest pain, unspecified (principal); Z79.01 Long term (current) use of anticoagulants
CPT/HCPCS: 36415; 71046; 80053; 83690; 84484; 85025; 85380; 85610; 85730; 93005; 94640; 99284